=== PATIENT | female | born 1975 | race Caucasian/White ===

== ENCOUNTER 2016-09-25 01:06 | Emergency (ER) | payer OTHER ==
[~2016-09-25 01:06] MED LIST: AMOXICILLIN PO; APIDRA100 U/ML SQ; ATIVAN PO; ATIVAN0.5 MG PO; AUGMENTIN PO; BACTRIM DS TABL1 TA1 PO; CARVEDILOL6.25 MG PO; CHOLESTEROL PILL; CLEOCIN PO; CLOPIDOGREL75 MG PO; COREG12.5 MG PO; COREG6.25 MG PO; GLUCOPHAGE500 MG PO; GLUCOTROL XL PO; HUMALOG100 U/ML; HUMALOG100 U/ML SUBQ; IMDUR-ER30 M1 PO; ISOSORBIDE MONO30 M1 PO; KEFLEX PO; KEFLEX500 MG PO; LANTUS100 U/ML SUBQ; LANTUS100 UNITS/; LISINOPRIL1 GM PO; LISINOPRIL10 MG PO; LORTAB 10-5001 EACH PO; METFORMIN HCL1000 M2 PO; METFORMIN HCL500 M1 PO; METFORMIN PO; METOPROLOL TAR25 MG PO; NEURONTIN300 MG PO; PLAVIX PO; PRENATAL1 TA1 PO; PREVACID PO; TYLOX 5/500 CAP1 CAP PO; TYLOX1 CAP 5/50 PO; ULTRAM PO; VASOTEC PO; VICODIN 5/1 TAB 5/50 PO; ZOCOR20 MG PO
== END 2016-09-25 02:28 | disposition home or self-care (01) ==
LOC: SED 01:06
DX: K04.7 Periapical abscess without sinus (principal); E11.9 Type 2 diabetes mellitus without complications; I10 Essential (primary) hypertension; F17.210 Nicotine dependence, cigarettes, uncomplicated; Z79.899 Other long term (current) drug therapy; Z79.4 Long term (current) use of insulin; Z88.0 Allergy status to penicillin; Z88.5 Allergy status to narcotic agent
CPT/HCPCS: 99283

== ENCOUNTER 2016-12-12 03:37 | Emergency (ER) | payer OTHER ==
[~2016-12-12] VITALS: Ht 167.6 cm; Wt 82.5 kg
== END 2016-12-12 06:22 | disposition home or self-care (01) ==
LOC: CED 03:37
DX: L02.212 Cutaneous abscess of back [any part, except buttock and flank] (principal); E11.9 Type 2 diabetes mellitus without complications; I10 Essential (primary) hypertension; Z98.51 Tubal ligation status; F17.210 Nicotine dependence, cigarettes, uncomplicated; Z88.0 Allergy status to penicillin; Z88.5 Allergy status to narcotic agent
CPT/HCPCS: 10060; 87070; 87205; 99283